=== PATIENT | female | born 1930 | race Caucasian/White ===

== ENCOUNTER 2016-09-28 18:43 | Inpatient (IN) | payer OTHER ==
[~2016-09-28] VITALS: Ht 157.5 cm; Wt 70.0 kg
--- NOTE | ~2016-09-28 | H ---
[facility] [place] [address] [address] HISTORY AND PHYSICAL Name: ANGEL BANKS Room #: 436-P [facility] IN M.R.#: [id number] Admission: 09/28/16 Attend Phys: Son Menard MD Discharge: 10/01/16 Date of : 28 Report #: [id number] THIS REPORT FOR: //name// CC: Rachel West Son Menard DATE OF SERVICE: 09/28/2016 CHIEF COMPLAINT: Weakness, confusion, and altered mental status. HISTORY OF PRESENT ILLNESS: The patient is an 86-year-old female who had a recent UTI, finish her antibiotics about a week ago and has been doing better, then slowly getting worse with confusion and disorientation. She denied any other focal complaints. PAST MEDICAL HISTORY: Significant for: 1. Hypertension. 2. Congestive heart failure, systolic. 3. Reflux. 4. Degenerative arthritis. 5. Gout. 6. Diabetes mellitus type 2. 7. Prior right elbow fracture. 8. Recent left wrist fracture. MEDICATIONS: Include Colestipol 2 daily, Ultracet p.r.n., aspirin 325 mg a day, hydrocodone p.r.n. pain, Cardura 2 mg a day, diltiazem ER 180 mg a day, lisinopril 20 mg a day, potassium 20 mEq a day, vitamin B daily, Lasix 40 mg a day, and allopurinol 300 mg a day. ALLERGIES: PENICILLIN AND SULFA. SOCIAL HISTORY: Nonsmoker, nondrinker, no recreational drugs. REVIEW OF SYSTEMS: CONSTITUTIONAL: She is unaware of any fever or chills. HEENT: No headaches or visual changes. CHEST: No chest pain, tightness in chest, short of breath, cough or sputum production. GASTROINTESTINAL: She has no nausea, vomiting, diarrhea or constipation. GENITOURINARY: She has burning and frequency. No hematuria. EXTREMITIES: She has left wrist pain. No new joint pains, otherwise. SKIN: No new rashes or wounds. NEUROLOGIC: No new numbness or weakness. PHYSICAL EXAMINATION: [address] [address] HISTORY AND PHYSICAL Name: ANGEL BANKS Room #: 436-P [facility] IN ..#: [id number] Admission: 09/28/16 Attend Phys: Son Menard MD Discharge: 10/01/16 Date of : 28 Report #: [id number] VITAL SIGNS: Blood pressure 120/32, pulse is 81, respiratory rate 20. She is afebrile. GENERAL: The patient is awake and more alert at this time, she apparently was very somnolent in the ER. Her mucous membranes are dry. NECK: Supple, without adenopathy, thyromegaly or bruits. CHEST: Clear to auscultation bilaterally, but no crackles or wheezes. CARDIOVASCULAR: Regular rhythm without murmur. ABDOMEN: Obese, but soft, no masses. Bowel sounds are active. EXTREMITIES: Show normal pulses, no edema. SKIN: Intact with no wounds. PSYCHIATRY: Normal mood and affect. LABORATORY DATA: Her sodium is , potassium 5.2, chloride 107, bicarbonate 23, BUN 46, creatinine 2.1, glucose is 152, lactate acid is 1.6. AST 17, ALT 16, alkaline phosphatase 246. WBC is 13.4, hemoglobin 9.7, hematocrit 29.4, platelet count 164, 86 segs, 9 bands, 2 lymphs. Urinalysis shows many white blood cells, 3-10 reds and many bacteria. ASSESSMENT: 1. Altered mental status. 2. Urinary tract infection. 3. Acute kidney injury with chronic kidney disease. 4. Diabetes mellitus. 5. Reflux. PLAN: We will admit, start on Rocephin. Also start on some mild IV fluids. Start PT and OT. <ELECTRONICALLY SIGNED> By: Son Menard MD 10/04/16 0844 0734 1050 Son Menard MD /nt
[~2016-09-28 18:43] MED LIST: ALLOPURINOL 10100 M1 PO; ALLOPURINOL 30300 M1 PO; ASPIRIN325 PO; BENICAR40 MG PO; CARDURA2 MG PO; CENTRUM SILVER1 EAC4 PO; CIPROFLOXACIN500 M1 PO; CLONIDINE HCL0.2 M2 PO; COLESTIPOL HCL1 G1 PO; COZAAR 50 MG TA50 M1 PO; COZAAR 50 MG TA50 MG PO; DILTIAZEM ER120 M1 PO; DILTIAZEM ER180 M1 PO; FLAGYL500 MG PO; FUROSEMIDE 20 M20 MG PO; FUROSEMIDE 40 M40 M1 PO; HYDRALAZINE 5050 M1 PO; K-DUR 20 MEQ T20 MEQ PO; LISINOPRIL20 MG PO; LORTAB 5 MG/5001 TA1 PO; MULTI VITAMIN1 EACH PO; POTASSIUM20 PO; PREDNISONE 10 M10 M1 PO; SIMVASTATIN20 MG PO; SUPER B COMPLE150 MG PO; TORSEMIDE100 MG; ULTRACET TABLE1 EACH PO; VITAMIN D-32000 UNIT PO; VITAMIN D400 UNI1 PO
[2016-09-28 18:44] VITALS: BP 128/32
[2016-09-28 19:40] LABS: HEMATOCRIT 29.4 % (37.0-47.0); HEMOGLOBIN 9.7 gm/dL (12.0-15.0); MANUAL DIFF YES; MCV 105.9 fL (80.0-100.0); PLATELET COUNT 164 thou/uL (150-400); RBC 2.77 mil/uL (4.20-5.00); RDW 15.3 % (10.5-14.5); WBC 13.4 thou/uL (4.0-11.0)
[2016-09-28 19:46] LABS: CALCIUM 8.8 mg/dL (8.5-10.1); CREATININE 2.1 mg/dL (0.6-1.0); POTASSIUM 5.2 mmol/L (3.5-5.1)
[2016-09-28 19:46] LABS: URINE BILIRUBIN NEGATIVE (Negative); URINE BLOOD 1+ (Negative); URINE COLOR YELLOW; URINE GLUCOSE-RANDOM* NEGATIVE (Negative); URINE KETONES TRACE (Negative); URINE LEUKOCYTES-REFLEX 2+ (Negative); URINE PROTEIN (DIPSTICK) TRACE (Negative); URINE UROBILINOGEN 0.2 E.U./dl (0.2-1.0)
[2016-09-28 19:51] LABS: ALBUMIN 2.3 g/dL (3.4-5.0); TOTAL BILIRUBIN 1.2 mg/dL (<0.1-1.0)
[2016-09-28 19:57] LABS: CASTS None Seen /LPF (None Seen); CRYSTALS None Seen /LPF (None Seen); SQUAMOUS 0-3 Few /LPF (0-3); URINE RBC 3-10 Few /HPF (0-2); URINE WBC-REFLEX >25 Many /HPF (0-5)
[2016-09-28 20:20] LABS: ABSOLUTE NEUTROPHILS 12.7 thou/uL (1.4-8.2); MACROCYTES 1+; TOTAL CELL COUNT 100
[2016-09-28 21:50] VITALS: BP 111/36
[2016-09-29 04:18] VITALS: BP 125/40
[2016-09-29 08:10] VITALS: BP 124/35
[2016-09-29 11:45] VITALS: BP 120/40
[2016-09-29 16:41] VITALS: BP 144/44
[2016-09-29 19:34] VITALS: BP 118/43
[2016-09-30 03:15] VITALS: BP 143/40
[2016-09-30 06:02] LABS: HEMATOCRIT 25.9 % (37.0-47.0); HEMOGLOBIN 8.8 gm/dL (12.0-15.0); MCH 35.9 pg (26.0-34.0); MCHC 33.9 g/dL (28.0-37.0); MCV 105.9 fL (80.0-100.0); RBC 2.45 mil/uL (4.20-5.00); RDW 15.2 % (10.5-14.5)
[2016-09-30 06:11] LABS: CALCIUM 8.8 mg/dL (8.5-10.1); CREATININE 1.4 mg/dL (0.6-1.0); POTASSIUM 4.8 mmol/L (3.5-5.1)
[2016-09-30 07:31] VITALS: BP 148/40
[2016-09-30 11:28] VITALS: BP 139/41
[2016-09-30 15:08] VITALS: BP 139/38
[2016-09-30 19:47] VITALS: BP 142/46
[2016-10-01 04:15] VITALS: BP 152/56
[2016-10-01 08:00] VITALS: BP 184/53
[2016-10-01 08:28] VITALS: BP 184/53
[2016-10-01] MEDS ORDERED: CEFDINIR300 MG PO (12:42)
== END 2016-10-01 17:21 | DRG 682 ==
LOC: ER 18:43 → 4S 20:50 → EROBS 20:50 → 4S 21:15
PROVIDERS: Emergency Medicine; Family Medicine
DX: N17.9 Acute kidney failure, unspecified (principal); G93.41 Metabolic encephalopathy; N39.0 Urinary tract infection, site not specified; I13.0 Hypertensive heart and chronic kidney disease with heart failure and stage 1 through stage 4 chronic kidney disease, or unspecified chronic kidney disease; I50.20 Unspecified systolic (congestive) heart failure; E11.22 Type 2 diabetes mellitus with diabetic chronic kidney disease; N18.9 Chronic kidney disease, unspecified; K21.9 Gastro-esophageal reflux disease without esophagitis; M19.90 Unspecified osteoarthritis, unspecified site; M10.9 Gout, unspecified; I48.91 Unspecified atrial fibrillation; Z79.899 Other long term (current) drug therapy; Z88.0 Allergy status to penicillin; Z88.2 Allergy status to sulfonamides; Z79.82 Long term (current) use of aspirin
CPT/HCPCS: 10100

== ENCOUNTER 2016-10-25 20:44 | Inpatient (IN) | payer OTHER ==
[~2016-10-25] VITALS: Ht 157.5 cm; Wt 64.1 kg
--- NOTE | ~2016-10-25 | EKG ---
[place] [address] 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 : 1930 Requested By: Moose Montes Order Number: [id number] MD: Lionel Ramirez Measurements Intervals [place] Rate: 49 P: [place]: QRS: 33 QRSD: 154 T: 32 QT: 510 QTc: 461 Interpretive Statements Junctional rhythm Right bundle branch block Compared to ECG 12/13/2014 10:27:35 Junctional rhythm now present Electronically Signed On 10-27-2016 8:39:14 CDT by Lionel Ramirez [email or web address] <ELECTRONICALLY SIGNED> By: Lionel Ramirez MD, [facility] 10/27/16 0839 38 38 Lionel Ramirez MD, [facility] /EPI
--- NOTE | ~2016-10-25 | H ---
[facility] [place] [address] [place] [address] HISTORY AND PHYSICAL Name: ANGEL BANKS Room #: 204-P [facility] IN M.R.#: [id number] Admission: 10/25/16 Attend Phys: Son Menard MD Discharge: 10/27/16 Date of : 29 Report #: [id number] THIS REPORT FOR: //name// CC: ABEL physician/PCP Son Menard DATE OF SERVICE: 10/26/2016 CHIEF COMPLAINT: Low heart rate. HISTORY OF PRESENT ILLNESS: The patient is an 86-year-old female who has been at [facility], and then noted her pulse was low on her routine vitals. They sent her to the ER for evaluation of this. The patient was asymptomatic. She was really unaware of any thing that is going on, that is abnormal. She has had a recent left arm fracture and did get a rehab there. PAST MEDICAL HISTORY: Otherwise, significant for, 1. Hypertension. 2. Congestive heart failure. 3. Reflux. 4. Arthritis. 5. Prior right elbow fracture reconstruction. 6. Gout. 7. Diabetes mellitus type 2. 8. Recent left wrist fracture. MEDICATIONS: Aspirin 325 mg a day, Lortab p.r.n., Cardura 2 mg a day, diltiazem 180 mg a day, Zestril 20 mg a day, potassium 20 meq a day, Lasix 40 mg a day, allopurinol 300 mg a day. ALLERGIES: PENICILLIN and SULFA. SOCIAL HISTORY: Nonsmoker and nondrinker. No recreational drugs. REVIEW OF SYSTEMS: CONSTITUTIONAL: No fever or chills. HEENT: No headaches or visual changes. CHEST: She denies chest pain, tightness in chest, short of breath, cough or sputum production. GASTROINTESTINAL: No nausea, vomiting, diarrhea, or constipation. GENITOURINARY: No burning or frequency. EXTREMITIES: No new joint pain. She has chronic joint pain. SKIN: No new rashes or wounds. NEUROLOGIC: No new numbness or weakness. PHYSICAL EXAMINATION: [facility] [address] [place] [address] HISTORY AND PHYSICAL Name: JOCELYNANGEL Laurel Room #: 204-P [facility] IN M.R.#: [id number] Admission: 10/25/16 Attend Phys: Son Menard MD Discharge: 10/27/16 Date of : 29 Report #: [id number] VITAL SIGNS: Blood pressure in the ER 139/33, pulse was 51 went down as low as 30s, respiratory rate was 10, her O2 sat was 100% on 2 liters. GENERAL: She is awake, alert, and very pleasant. She recognized me. She denies any focal complaints. Her mucous membranes are moist. NECK: Supple, without adenopathy, thyromegaly, or bruits. CHEST: Clear to auscultation bilaterally. CARDIOVASCULAR: She has a bradycardic rhythm with 3/6 systolic ejection murmur, no S4. ABDOMEN: Obese but soft. No masses. Bowel sounds are active. EXTREMITIES: She has some old bruise on her upper back. There is edema in both legs, 2+ to 3+. Otherwise, skin is intact. NEUROLOGIC: Grossly intact. She is alert and oriented. DIAGNOSTIC DATA: EKG showed a junctional rhythm at rate of 49. LABORATORY DATA: Sodium 137, potassium 4.8, chloride 110, bicarbonate 21, BUN 24, creatinine 1.4, glucose 108, calcium 7.2, magnesium 1.7, AST is 21, ALT is 13. CPK is 34. Troponin is less than 0.04. BNP is 2679. Her total protein is 5.7, albumin is 2.6. INR is 1.1. WBC 6.7, hemoglobin 9.7, hematocrit 28.4, platelet count 140. Segmented 79, lymphs 14. Her chest x-ray shows cardiomegaly with no acute pulmonary edema. Venous Dopplers recently were negative in her legs, per her report. ASSESSMENT: 1. Bradycardia asymptomatic, only junctional rhythm. 2. Thrombocytopenia. 3. Macrocytic anemia. PLAN: The patient will be admitted. She was placed on the monitor. We will consult Cardiology. She may require pacemaker placement, versus just holding her Cardizem, which were done for now. Resume her other home medications excluding the Cardura and Cardizem. <ELECTRONICALLY SIGNED> By: Son Menard MD 11/10/16 1511 0741 1044 Son Menard MD /nt
--- NOTE | ~2016-10-25 | P ---
[facility] [place] [address] [place] [address] PROCEDURE REPORT Name: JOCELYNANGEL Laurel Room #: 204-P [facility] IN M.R.#: [id number] Admission: 10/25/16 Attend Phys: Son Menard MD Discharge: 10/27/16 Date of : 29 Report #: [id number] THIS REPORT FOR: //name// CC: ABEL physician/PCP Son Menard PROCEDURE: Pacemaker implantation. PREOPERATIVE DIAGNOSIS: Heart block. POSTOPERATIVE DIAGNOSIS: Heart block. HISTORY OF PRESENT ILLNESS: The patient is a patient with known AFib with symptomatic bradycardia here for pacemaker implantation. ANESTHESIA: The patient underwent MAC anesthesia, no anesthesia related complications. DESCRIPTION OF PROCEDURE: The patient underwent informed consent. We discussed the details of the procedure including the risks, which include but not limited to bleeding, infection, vascular damage, cardiac perforation, and pneumothorax. She understood these risks and is willing to proceed. As such, the patient was brought to the EP laboratory in a fasting and sedated state, prepped and draped in a sterile fashion and underwent venogram showing patency of the axillary vein. She did receive IV antibiotics prior to initiation of the procedure. Lidocaine was injected below the level of the left clavicle. Incision was made. Pocket was created over the prepectoral fascia and access was obtained once to the left axillary vein using the extrathoracic approach with the sheath positioned using the modified Seldinger technique. A lead was positioned in the right ventricular apex with adequate pacing and sensing thresholds, sutured to the prepectoral fascia and the pocket was irrigated, the device was connected to the lead and was tested and found to be functioning normally. The pocket was closed in 3 layers and then surgical glue was placed to the outer skin layer. The patient awoke neurologically hemodynamically intact with no complications and no significant bleeding. The implanted pacemaker is a [employer] model # [id number], serial #[id number] with an RV lead that was [employer] model # , 58 cm, serial #[id number] with a R-wave of 1.9 millivolts, pacing impedance of 530 ohms and pacing threshold 0.5 volts at 0.4 milliseconds. The device is programmed to the VVI 70-130 mode. CONCLUSIONS: [facility] [address] [place] [address] PROCEDURE REPORT Name: BANKSANGEL Room #: 204-P [facility]#: [id number] Admission: 10/25/16 Attend Phys: Son Menard MD Discharge: 10/27/16 Date of : 29 Report #: [id number] 1. Successful pacemaker implantation. 2. Satisfactory right ventricular pacing and sensing threshold. <ELECTRONICALLY SIGNED> By: Patricio Cano MD 11/16/16 1359 1342 0246 Patricio Cano MD /nt
--- NOTE | ~2016-10-25 | EKG ---
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
--- NOTE | ~2016-10-25 | 2DMMODE ---
[facility] [place] [address] 2 D/M-MODE ECHOCARDIOGRAM Name: BANKSANGEL Room #: 204-P [facility] IN ..#: [id number] Admission: 10/25/16 Attend Phys: Son Menard, Discharge: Date of : 28 Date of Service: 10/26/16 1357 Report #: [id number] THIS REPORT FOR: //name// APPROVED REPORT Study performed: 10/26/2016 10:28:28 EXAM: Comprehensive 2D, Doppler, and color-flow Echocardiogram Patient Location: Bedside Room #: 204 Blood Pressure: 151/49 mmHg HR: 48 bpm Rhythm: Bradycardia Other Information Study Quality: Adequate Indications CHF, BRADYCARDIA, EDEMA. PRE-OP PACEMAKER. HX: HTN, CHF, DM 2D Dimensions RVDd: 38.72 mm LVEF(%): 61.15 (>50%) IVSd: 11.06 (7-11mm) LVOT Diam: 19.65 (18-24mm) LVDd: 48.04 mm PWd: 9.66 (7-11mm) LVDs: 32.28 (25-40mm) Shafer's LVEF: 61.15 % Volumes Left Atrial Volume (Systole) Single Plane 4CH: 66.69 mL Single Plane 2CH: 56.48 mL Aortic Valve AoV Peak Ender.: 3.27 m/s AO Peak Gr.: 42.69 mmHg LVOT Max P.32 mmHg AO Mean Gr.: 24.91 mmHg LVOT Max V: 1.15 m/s AO V2 VTI: 87.75 cm Mitral Valve E/A Ratio: 1.2 MV Decel. Time: 130.74 ms [facility] [address] [place] [address] 2 D/M-MODE ECHOCARDIOGRAM Name: ANGEL BANKS Room #: 204-P [facility] IN [facility].#: [id number] Admission: 10/25/16 Attend Phys: Son Menard, Discharge: Date of : 28 Date of Service: 10/26/16 1357 Report #: [id number] MV E Max Ender.: 0.99 m/s MV A Ender.: 0.80 m/s MV PHT: 37.92 ms Pulmonary Valve PV Peak Ender.: 0.88 m/s PV Peak Gr.: 3.12 mmHg Tricuspid Valve TR Peak Ender.: 3.17 m/s TR Peak Gr.: 40.24 mmHg Left Ventricle The left ventricle is normal size. There is normal LV segmental wall motion. There is normal left ventricular wall thickness. Left ventricular systolic function is normal. LVEF is 60%. Right Ventricle The right ventricle is normal size. The right ventricular systolic function is normal. Atria Left atrium is dilated. Right atrium is dilated. Aortic Valve Aortic valve is calcified. Mild aortic regurgitation. Moderate aortic stenosis. Calculated YARITZA by the continuity equation is 1.1 cm2. Mitral Valve Mitral valve leaflets are mildly thickened. Mild mitral annular calcification. Mild mitral regurgitation. Tricuspid Valve The tricuspid valve is normal in structure. There is moderate tricuspid regurgitation. The right atrial pressure is estimated at mmHg. There is moderate pulmonary hypertension with an estimted PAP of 40mmHg. plus the right atiral pressure. Pulmonic Valve Pulmonic valve is not well visualized. Great Vessels The aortic root is normal in size. Ascending aorta is not well visualized. IVC is not well visualized. [facility] [address] [place] [address] 2 D/M-MODE ECHOCARDIOGRAM Name: JOCELYNANGEL Room #: 204-P [facility] IN ..#: [id number] Admission: 10/25/16 Attend Phys: Son Menard, Discharge: Date of : 28 Date of Service: 10/26/16 1357 Report #: [id number] There is no pericardial effusion. <Conclusion> Left ventricular systolic function is normal. There is normal LV segmental wall motion. LVEF is 60%. Both atria are dilated. Aortic valve is calcified. Mild aortic regurgitation. Calculated YARITZA by the continuity equation is 1.1 cm2 (Peak gradient 42mm, mean 25mm) Mild mitral annular calcification. Mild mitral regurgitation. Pulmonary artery pressure of 50mmHg. There is no pericardial effusion. <ELECTRONICALLY SIGNED> By: Lionel Ramirez MD, [facility] 10/26/16 1357 135 135 Lionel Ramirez MD, FAC /INF
[2016-10-25 20:44] VITALS: BP 139/33
[~2016-10-25 20:44] MED LIST changes: +CEFDINIR300 MG PO
[2016-10-25 21:09] LABS: ABSOLUTE NEUTROPHILS 5.4 thou/uL (1.4-8.2); BASOPHILS 0.3 % (0.0-2.0); EOSINOPHILS 1.1 % (0.0-3.0); HEMATOCRIT 28.4 % (37.0-47.0); HEMOGLOBIN 9.7 gm/dL (12.0-15.0); LYMPHOCYTES 14.2 % (24.0-44.0); MCH 36.3 pg (26.0-34.0); MCHC 34.2 g/dL (28.0-37.0); MCV 106.4 fL (80.0-100.0); MONOCYTES 4.7 % (1.0-8.0); PLATELET COUNT 140 thou/uL (150-400); POLYS 79.7 % (36.0-66.0); RBC 2.67 mil/uL (4.20-5.00); RDW 17.5 % (10.5-14.5); WBC 6.7 thou/uL (4.0-11.0)
[2016-10-25 21:11] LABS: MANUAL DIFF NO
[2016-10-25 21:14] LABS: ANION GAP 6 mmol/L (7-16); BUN 24 mg/dL (7-18); CALCIUM 7.2 mg/dL (8.5-10.1); CHLORIDE 110 mmol/L (98-107); CO2 21 mmol/L (21-32); CREATININE 1.4 mg/dL (0.6-1.0); GLUCOSE 108 mg/dL (74-106); POTASSIUM 4.8 mmol/L (3.5-5.1); SODIUM 137 mmol/L (136-145)
[2016-10-25 21:24] LABS: ALBUMIN 2.6 g/dL (3.4-5.0); ALKALINE PHOSPHATASE 110 U/L (46-116); MAGNESIUM 1.7 mg/dL (1.8-2.4); SGOT 21 U/L (15-37); SGPT 13 U/L (30-65); TOTAL BILIRUBIN 0.6 mg/dL (<0.1-1.0); TOTAL PROTEIN 5.7 g/dL (6.4-8.2); TROPONIN-I < 0.04 ng/mL (<0.04-0.07)
[2016-10-25 21:27] LABS: INR 1.1; PROTIME 11.4 Seconds (9.3-11.4)
[2016-10-25 21:48] LABS: NT-PRO BRAIN NAT PEPTIDE 2679 pg/mL (<300)
[2016-10-25 22:32] VITALS: BP 141/66
[2016-10-25 23:10] VITALS: BP 150/48
[2016-10-26 04:38] VITALS: BP 140/50
[2016-10-26 07:45] VITALS: BP 151/49
[2016-10-26 09:17] LABS: % SATURATION 29 % (20-39); IRON 50 ug/dL (50-170); TIBC 174 ug/dL (250-450); UIBC 124 ug/dL
[2016-10-26 12:15] VITALS: BP 161/44
[2016-10-26 17:57] VITALS: BP 161/68
[2016-10-26 20:22] VITALS: BP 154/55
[2016-10-27 00:48] VITALS: BP 140/48
[2016-10-27 04:35] VITALS: BP 147/56
[2016-10-27 07:20] VITALS: BP 90/60
[2016-10-27 11:20] VITALS: BP 149/74
[2016-10-27 16:05] VITALS: BP 112/50
== END 2016-10-27 16:53 | DRG 242 ==
LOC: ER 20:44 → 2N 22:00 → EROBS 22:00 → 2N 22:40
PROVIDERS: Emergency Medicine; Internal Medicine
PROC: 0JH604Z Insertion of Pacemaker, Single Chamber into Chest Subcutaneous Tissue and Fascia, Open Approach (ICD-10-PCS; principal; 2016-10-26)
PROC: 02HK3JZ Insertion of Pacemaker Lead into Right Ventricle, Percutaneous Approach (ICD-10-PCS; principal; 2016-10-26)
DX: I49.5 Sick sinus syndrome (principal); E43 Unspecified severe protein-calorie malnutrition; I13.0 Hypertensive heart and chronic kidney disease with heart failure and stage 1 through stage 4 chronic kidney disease, or unspecified chronic kidney disease; I48.92 Unspecified atrial flutter; D69.6 Thrombocytopenia, unspecified; I48.91 Unspecified atrial fibrillation; I45.9 Conduction disorder, unspecified; D53.9 Nutritional anemia, unspecified; I50.9 Heart failure, unspecified; E11.22 Type 2 diabetes mellitus with diabetic chronic kidney disease; N18.9 Chronic kidney disease, unspecified; K21.9 Gastro-esophageal reflux disease without esophagitis; M19.90 Unspecified osteoarthritis, unspecified site; M10.9 Gout, unspecified; Z88.0 Allergy status to penicillin; Z88.2 Allergy status to sulfonamides; Z87.81 Personal history of (healed) traumatic fracture
CPT/HCPCS: 10081; 62110; 62900; 70005